=== PATIENT | female | born 1990 | race Caucasian/White ===

== ENCOUNTER 2017-09-23 19:28 | Emergency (ER) | payer OTHER ==
[~2017-09-23] VITALS: Ht 162.6 cm; Wt 99.8 kg
[2017-09-23 20:07] VITALS: Ht 162.6 cm; Wt 99.8 kg
[2017-09-23 21:27] VITALS: BP 145/78
== END 2017-09-23 21:27 | disposition home or self-care (01) ==
LOC: ED 19:28
DX: H10.13 Acute atopic conjunctivitis, bilateral (principal); J30.9 Allergic rhinitis, unspecified; E11.9 Type 2 diabetes mellitus without complications

== ENCOUNTER 2017-11-14 20:41 | Emergency (ER) | payer OTHER ==
[~2017-11-14] VITALS: Ht 165.1 cm; Wt 108.9 kg
[2017-11-14 20:49] VITALS: Ht 165.1 cm; Wt 108.9 kg
[2017-11-14 22:57] VITALS: BP 134/88
== END 2017-11-14 22:57 | disposition home or self-care (01) ==
LOC: ED 20:41
DX: F43.9 Reaction to severe stress, unspecified (principal); F41.9 Anxiety disorder, unspecified; E10.9 Type 1 diabetes mellitus without complications; F12.90 Cannabis use, unspecified, uncomplicated
CPT/HCPCS: 82962; J7030